=== PATIENT | male | born 1995 | race Hispanic/Latino ===

== ENCOUNTER 2017-04-02 12:07 | Emergency (ER) | payer SELFPAY ==
[2017-04-02 12:19] VITALS: BP 117/76; TEMP 96.9; O2SAT 99
--- NOTE | 2017-04-02 12:58 | RAD ---
EXAM DESCRIPTION: Hand,Left 3 Views CLINICAL HISTORY: crush injury COMPARISON: None. TECHNIQUE: 3 views left FINDINGS: No fracture or joint and normality is seen. No significant soft tissue swelling is noted. The exam does reveal periosteal reaction in the middle phalanx of the fourth digit this may be the result of a healing nondisplaced injury. No further abnormalities detected. IMPRESSION: Periosteal reaction is observed in the middle phalanx of the fourth digit which may be the result of a healing nondisplaced injury. Electronically signed by: Jose Champion MD 04/02/2017 12:57 PM [facility]
--- NOTE | 2017-04-02 13:00 | RAD ---
EXAM DESCRIPTION: Hand,Right 3 Views CLINICAL HISTORY: crush injury COMPARISON: None. TECHNIQUE: 3 views right FINDINGS: I see no bone joint or soft tissue abnormality. IMPRESSION: Normal right hand Electronically signed by: Jose Champion MD 04/02/2017 12:59 PM [employer]NAGEMENT ADVISOR
--- NOTE | 2017-04-02 13:04 | ED.PDOC ---
History of Present Illness - General Chief Complaint: Upper Extremity Injury Stated Complaint: crushed 3 fingers of both hands Time Seen by Provider: 04/02/17 12:52 Source: patient Exam Limitations: no limitations - History of Present Illness Initial Comments: Antonino Brown 21 y/o male came to ER stating while checking his truck engine with qiu up it accidentally fell down and crushed his finger causing it to be sore fingers both hands.Denies previous injury.pain on making a fist. Occurred: just prior to arrival Pain - Upper Extremity: moderate: Hand, left, Hand, right Method of Injury: other - see hpi Improving Factors: movement Worsening Factors: rest Allergies/Adverse Reactions: Allergies NO KNOWN ALLERGY Allergy (Verified 04/02/17 12:14) Review of Systems - Review of Systems Constitutional: States: no symptoms reported EENTM: States: no symptoms reported Respiratory: States: no symptoms reported Cardiology: States: no symptoms reported Musculoskeletal: States: see HPI Neurological: States: no symptoms reported All other Systems: Reviewed and Negative, No Change from Baseline Past Medical History (General) - Patient Medical History Hx Seizures: No Hx Stroke: No Hx Asthma: No Hx of COPD: No Hx Cardiac Disorders: No Hx Pacemaker: No Hx Thyroid Disease: No Hx Gastroesophageal Reflux: No Surgical History: no surgical history Family Medical History - Family History Mother Family History: No Known Physical Exam - Physical Exam General Appearance: Alert, Comfortable, No apparent distress Eyes, Ears, Nose, Throat Exam: normal ENT inspection Neck: non-tender, full range of motion, supple Cardiovascular/Respiratory: regular rate, rhythm, no M/R/G, normal peripheral pulses, normal breath sounds, no respiratory distress Abdominal Exam: non-tender, no organomegaly Back Exam: no CVA tenderness, no vertebral tenderness Elbow/Forearm Exam: normal inspection, no evidence of injury Wrist Exam: normal inspection, no evidence of injury Hand Exam: bone tenderness - fingers both hands, limited ROM - pain, soft tissue tenderness - fingers both hands Neuro/Tendon: normal sensation, normal motor functions, normal tendon functions , responds to pain, no evidence tendon injury Mental Status: alert, oriented x 3 Skin Exam: normal color, warm/dry Progress - Progress Progress: 04/02/17 13:06 Last Vital Signs Temp 96.9 F L 04/02/17 12:14 Pulse 106 H 04/02/17 12:14 Resp 22 04/02/17 12:14 BP 117/76 04/02/17 12:14 Pulse Ox 99 04/02/17 12:14 - EKG/XRAY/CT XRAY: hand - normal fingers right hand;Periosteal reaction 4th digit mid phalanx left hand Departure - Departure Clinical Impression: Crushing injury of finger of left hand, Crushing injury of finger of right hand , Pain in finger of both hands Time of Disposition: 13:16 Disposition: Discharge to Home or Self Care Condition: Good Departure Forms: ED Discharge - Pt. Copy, Patient Portal Self Enrollment Instructions: DI for Hand Injury Additional Instructions: May take Aleve 1-2 tablets AM/PM for pain as needed until better (over the counter);Ice pack to finger 15 minutes 3 x a day during waking hours only for 5 days
[2017-04-02] MEDS: IBUPROFEN 200 MG TAB PO ONE (13:28)
[2017-04-02] MEDS ORDERED: NEOMYCIN-BACITRACIN-POLYMYXIN 0.9 GM UD TOP ONE (13:31)
== END 2017-04-02 13:35 | disposition home or self-care (01) ==
LOC: ER 12:07
DX: S67.198A Crushing injury of other finger, initial encounter (principal); W23.0XXA Caught, crushed, jammed, or pinched between moving objects, initial encounter; Y92.9 Unspecified place or not applicable